=== PATIENT | female | born 1990 | race African-American/Black ===

== ENCOUNTER 2019-08-01 00:48 | Emergency (ER) | payer OTHER, SELFPAY ==
[2019-08-01 00:52] VITALS: BP 120/85; PULSE 71; RESP 18; TEMP 36.9; O2SAT 99
--- NOTE | 2019-08-01 03:21 | ED.URI ---
HPI - URI/Sore Throat General Chief Complaint: Upper Respiratory Symptoms Stated Complaint: possible strep throat Time Seen by Provider: 08/01/19 03:21 Source: patient Mode of arrival: Ambulatory Limitations: no limitations History of Present Illness HPI Narrative: This is a 28-year-old female comes to the emergency department with concern for possible strep throat. Patient has been afebrile. She is not any nasal congestion, she has a cough. She has had a sore throat. She has not had muffled voice. She has not had any chest pressure, shortness of breath. She denies any postnasal drip. She states her eyes have felt a little itchy. She denies any nausea vomiting no GI or urinary symptoms. She does have a 6-month-old who was recently ill in just finished antibiotics for ear infection. Patient states no other medical issues. No allergies to medications. Related Data Home Medications Medication Instructions Recorded Confirmed No Known Home Medications 01/16/19 01/16/19 Allergies Allergy/AdvReac Type Severity Reaction Status Date / Time No Known Drug Allergies Allergy Unverified 01/16/19 14:58 Review of Systems Review of Systems ROS Unobtainable: All systems reviewed & are unremarkable except as noted in HPI and below Patient History Social History Smoking Status: Never smoker Smoking Status: Never smoker Exam Narrative Exam Narrative: GEN: well nourished, well appearing female, alert and oriented x 3, patient appears to be in mild distress. HEENT: Atraumatic, pupils are equal round reactive to light, extraocular movements are intact, nares are clear, TMs are clear with no fluid, there is no conjunctival pallor. Throat is mildly erythematous without any exudates, no tonsillar enlargement or uvular deviation, no hoarseness. Patient has bilateral cervical lymphadenopathy. HEART: Regular rate and rhythm without murmur, clicks, rubs. LUNGS:Lungs clear to auscultation, no wheezes, rales, crackles, chest moves symmetrically ABD:bowel sounds normal, soft, non-tender, no guarding, rebound, rigidity, no masses noted, no hepatosplenomegaly MSCL: Non-tender, no muscle atrophy, muscles strength 5/5 upper and lower extremities, full range of motion, normal gait NEURO:CN 2-12 intact, sensation normal Initial Vital Signs Initial Vital Signs: Vital Signs Temperature 98.5 F 08/01/19 00:52 Pulse Rate 71 08/01/19 00:52 Respiratory Rate 18 08/01/19 00:52 Blood Pressure 120/85 08/01/19 00:52 Pulse Oximetry 99 08/01/19 00:52 Course Orders Ordered: Discontinued Medications Dexamethasone (Decadron) 10 mg PO NOW ONE Stop: 08/01/19 03:36 Last Admin: 08/01/19 03:44 Dose: 10 mg Documented by: RENETTA Vital Signs Vital signs: Vital Signs - 8 hr 08/01/19 00:52 08/01/19 03:50 Temperature 98.5 F 97.8 F Pulse Rate 71 61 Respiratory Rate 18 16 Blood Pressure 120/85 120/88 Pulse Oximetry 99 99 MDM - URI/Sore Throat Lab Data Attestation: I reviewed the patient's lab results. Labs: Point of Care Testing Rapid Strep A Negative Discharge Plan Departure Patient Disposition: Home Clinical Impression: Pharyngitis Discharge Date/Time: 08/01/19 03:50 Instructions: DI for Viral Pharyngitis Activity Restrictions/Additional Instructions: Follow-up with primary care in the next week if your symptoms are not improving. May continue with ibuprofen and/or Tylenol as needed for pain. Gargle with warm salt water as needed. Return to the emergency department for fevers greater 100.4 F, worsening swelling of the throat, muffled voice, swelling on one side of the throat or uvula being pushed to the side, neck swelling, inability to swallow liquids or your own saliva, severe headaches or other new or concerning symptoms Prescriptions: No Action No Known Home Medications RF: 0
[2019-08-01] MEDS: DEXAMETHASONE 10 MG/ML VIAL PO (03:44)
[2019-08-01 03:50] VITALS: BP 120/88; PULSE 61; RESP 16; TEMP 36.6; O2SAT 99
== END 2019-08-01 03:50 | disposition home or self-care (01) ==
PROVIDERS: Emergency Provider Emergency Medicine
DX: J02.9 Acute pharyngitis, unspecified (principal)
CPT/HCPCS: 87880; 99282; 99283; J1100